=== PATIENT | female | born 1935 | race Caucasian/White ===

== ENCOUNTER 2019-03-21 14:27 | Outpatient (CLI) | payer MEDICARE, OTHER ==
--- NOTE | 2019-03-23 12:05 | XRAY Report ---
Reason: FELL ON TO R SHOULDER 1 YR AGO Procedure Date: 03/21/2019 Accession Number: [id number] / [id number] Procedure: XR - Shoulder 3 View RT CPT Code: FULL RESULT: EXAM: RIGHT SHOULDER RADIOGRAPHY EXAM DATE: 03/21/2019 04:08 PM. CLINICAL HISTORY: Fell on to right shoulder 1 year ago. COMPARISON: None. TECHNIQUE: 3 views. FINDINGS: Bones: Normal. No fracture or bone lesion. Joints: The glenohumeral and acromioclavicular joints are normally aligned. Mild glenohumeral and acromioclavicular joint degenerative disease. Soft tissues: The visualized hemithorax is unremarkable. No soft tissue swelling. IMPRESSION: 1. No acute abnormality. 2. Mild AC joint and glenohumeral joint degenerative disease. RADIA
== END 2019-03-21 14:28 | disposition home or self-care (01) ==
LOC: DI 14:27
PROVIDERS: ATTEND Family Medicine
DX: M19.011 Primary osteoarthritis, right shoulder (principal)

== ENCOUNTER 2020-04-21 15:34 | Outpatient (CLI) | payer MEDICARE, OTHER ==
--- NOTE | 2020-04-21 17:11 | XRAY Report ---
PROCEDURE: Hip w/Pelvis 2-3V LT INDICATIONS: SUDDEN PAIN L HIP/FALL TECHNIQUE: AP pelvis with lateral view(s) of the bilateral hip(s). COMPARISON: None. FINDINGS: Bones: No fractures or dislocations. Pelvic ring appears intact. No suspicious bony lesions. Soft tissues: The visualized bowel gas pattern is normal. No suspicious soft tissue calcifications. IMPRESSION: Mild symmetric hip joint osteoarthritis, no trauma found. Reviewed by: Salas العراقي MD on 04/21/2020 5:10 PM PDT Approved by: Salas العراقي MD on 04/21/2020 5:10 PM PDT Station ID: [id number]
== END 2020-04-21 15:35 | disposition home or self-care (01) ==
LOC: DI 15:34
PROVIDERS: ATTEND Physician Assistant
DX: M16.12 Unilateral primary osteoarthritis, left hip (principal)

== ENCOUNTER 2020-04-22 14:00 | Outpatient (CLI) | payer MEDICARE, OTHER ==
--- NOTE | 2020-04-22 17:15 | CONSULTATION NOTE ---
Palliative Care Consultation - Referral Referring Provider: Dr. Bunny Lai Time of Visit: [id number] Referral setting: Home Referral Reason: Dementia/Advanced Care Planning - Information Sources Records reviewed: Previous records reviewed History/Review of Systems obtained from: Patient, Friend (Adina present) Exam limitations: Clinical condition (short term memory impairment noted) - History of Present Illness Brief History of Present Illness: This is a delightful 84-year-old female who was seen for initial palliative care consultation today due to dementia and advanced care planning. The patient's friends, Adina is present during today's evaluation. The patient was seen by her PCP on 02/20/2020 a referral to palliative care was made for advanced care planning. The patient herself recognizes that she is forgetful but equates it more to forgetfulness with words. She finds that there may be a word in the course of the conversation that is just quite out of reach. She has not driven since her PCP suggested that she not drive. She scored 14/30 on her SLUMS exam with her PCP on 02/20/2020. She has been relying on close friends and the community of her taoism for assistance with necessities such as grocery shopping and appointments. This is been quite a loss for the patient as she has always been independent individual and she finds tawnya in driving. The patient continues to manage her own finances but does report that they are tight. She is continually caring for her dog, Micaela. She reports to no difficulty with fixing her own meals, taking her medications were performing household tasks. The patient did sustain a fall last week where she was evaluated by her PCP and a fracture was ruled out. She reports that she tripped over the veronika. At baseline the patient does not typically use an assistive device but presently is now going to be using a cane for additional added support. She reports to some pain at the lower base of her spine she denies radiation of the pain, numbness or tingling of the extremities, loss of control of bowel or bladder. She is taking acetaminophen for her discomfort. The patient is seen in her living room. She is well groomed and in no apparent distress. 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 Her served in the . She was born in [place]. She had 5 children 2 are . She has 3 sons that are still living: Jad, resides in [place]; Tj, resides in [place]; and Bunny, resides in [place]. The patient had lived for a number of years in [place]. She is very active and involved in her taoism community. Her son, Bunny is in the [employer] and she was previously residing with him and his family until he was stationed in [place] and the patient opted to stay in [place]. She has a college degree in psychology. 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 She has a dog, Micaela who is a miniature snoozer. She was previously residing in [place] but due to financial constraints relocated to [place]. She is presently living in a rental apartment on her landlord's property. Family History - Family History Family History: Mother: , Father: , Sister: Cancer, Brother: , CVA/TIA Family History Comment/Other: Father due to drowning event. Medications/Allergies - Medications Home Medications: Ambulatory Orders Medication Instructions Recorded Confirmed Ascorbic Acid [Vitamin C] 1 tab PO DAILY 04/23/20 04/23/20 Cholecalciferol (Vitamin D3) 1 cap PO DAILY 04/23/20 04/23/20 [Vitamin D3] Cyanocobalamin (Vitamin B-12) 1 tab PO DAILY 04/23/20 04/23/20 [Vitamin B-12] Methyl Salicylate/Menthol 1 patch TP DAILY 04/23/20 04/23/20 [Salonpas Patch] Pyridoxine HCl (Vitamin B6) 100 mg PO DAILY 04/23/20 04/23/20 [Vitamin B6] - Allergies Allergies/Adverse Reactions: Allergies Allergy/AdvReac Type Severity Reaction Status Date / Time No Known Drug Allergies Allergy Verified 04/23/20 17:27 Review of Systems - Constitutional Constitutional: reports: Weight stable. denies: Fatigue - Eyes Eyes: reports: Corrective lenses. denies: Vision loss - Ears, Nose & Throat Ears, Nose & Throat: denies: Hearing aids - Cardiovascular Cardiovascular: denies: Chest pain, Edema - Respiratory Respiratory: denies: Cough - Gastrointestinal Gastrointestinal: reports: Good appetite. 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 denies: Dysuria - Musculoskeletal Musculoskeletal: reports: Back pain (due to recent fall s/p evaluation by PCP office on 04/21/2020). denies: Joint swelling - Integumentary Integumentary: denies: Pruritis - Neurological Neurological: reports: Memory problems (forgets words) - Psychiatric Psychiatric: denies: Depression - Endocrine Endocrine: denies: Diabetes type 2 - Hematologic/Lymphatic Hematologic/Lymphatic: denies: Anemia - All Other Systems All Other Systems: reports: Reviewed and negative Physical Exam - Vital Signs Temperature: 36.4 C Pulse Rate: 53 O2 Saturation: 98 (on RA at rest) Blood Pressure: 150/87 (left wrist cuff) - Physical Exam General Appearance: positive: No acute distress, Alert, Other (well groomed) Eyes Bilateral: positive: Other (+corrective lenses) ENT: positive: No signs of dehydration Neck: positive: Trachea midline Cardiovascular: positive: No murmur, Bradycardia Respiratory: positive: Chest non-tender, No respiratory distress, Breath sounds nml. negative: Rales Abdomen: positive: Non-tender, Soft, Nml bowel sounds Skin: positive: No symptoms Extremities: positive: No pedal edema, Other (spine nontender to palpation; reported discomfort occuring at appx L5 with no visible ecchymosis) Neurologic/Psychiatric: positive: Oriented x3, Mood/affect nml, Other (Very pleasant and engaged; memory recall 0/3; in drawing a clock stating 11:10 she quickly marianela the clock face and numbers but struggled with placement of the hands.) Palliative Care - POLST Patient has POLST: No Pain: Comment (pain has shifted from left hip to lower back after fall last week with no evidence of fracture on imaging.) Nausea: None Anorexia: None Dyspnea: None Depression: None Anxiety: None Feelings of wellbeing/Perceived Quality of Life: Good (outside of not being able to drive) Sleep: Sleeps well Constipation: No Performance Status: Patient is ambulatory without an assistive device. Prepares her own meals and cares for her dog, Micaela. As she is not driving at the present time she is being assisted to the grocery store for necessary supplies. Continent of bowel and bladder. - Palliative Care Discussion: The patient perceives that she is forgetful in regarding words. She does not see a big global deficit in her ability to care for herself. She has been compliant with her PCPs recommendation to no longer drive and has received support from her taoism community as well as her friends. She is quite established in the community. Her friend, Adina who is present during the evaluation today reports that the patient often requires frequent repetition of instruction before it is in her remote memory. The patient states that her ability to recall is influenced by the fact that she was unable to hear as a child when she first began learning and therefore had to adapt. Her hearing improved after she had a tonsillectomy. The patient is open to looking into resources within the area to maintain her independence for as long as possible. Her friends are open to providing supports within the community. Ultimately, the patient's plan is for once her son, Bunny retires from the in approximately 2 years she plans to relocate to [place] to live with him and his family. She previously was residing with Bunny and his family but did not wish to make the move to the [facility] as she does not like it there. She has overall been a healthy individual and is not taking any prescription medication. She does equate that she has avoidances to certain medications due to her history of a nephrectomy after she sent [place] an injury from a horse. Impression and Recommendations - Palliative Care Impression: This is a seferino and delightful 84-year-old female with evidence of dementia, likely mild to moderate in nature living independently. Likely some underlying vascular component to her dementia due to her prior history of TIAs and CVA. The patient wishes to maintain her independence for as long as possible as well as safely. Patient needs assistance with advanced care planning. Palliative care to continue to build rapport, explore goals of care and end of life planning, supportive listening and anticipatory guidance. Recommendations/Counseling Done: 1.Dementia, likely vascular component due to the patient's history of CVA and TIA. Presently able to perform activities of daily living with support from her local friends and community. The patient requires assistance for advanced care planning in regards to the future. Her present goal is to move back in with her son, Bunny when he retires from the in approximately 2 years. And exploration today aware that she needs multiple plans to avoid a potential crisis. She has been compliant with not driving and upon review today expressed that with her cognitive issues she may have impaired reflexes that may result in an injury to herself and others and concedes understanding and agreement to refrain from driving. From PCP is documentation appears a referral to neurology was made for neuropsychological evaluation however, the patient is unaware of a referral or pending appointment as it is her friend. Call placed to PCPs office to review if this is pending and planned.Patient may benefit from disease modifying agent such as Aricept to maintain her function and if she is open to medication. We will continue to build rapport and explore the patient's understanding of dementia and disease progression on subsequent visits. 2. Elevated blood pressure. No cardiac awareness. On no antihypertensive medication. Goal blood pressure less than 150/80 E given patient's advanced age, living alone, high risk for falls. Wish to avoid any adverse effects with potential antihypertensive medication that may lead to orthostasis resulting in a fall. Continue to monitor. 3. Low back pain, appx L5 s/p fall. Fall precautions. Imaging per patient negative for fracture. Encourage use of ambulation with cane. May use tylenol OTC for pain as recommended by PCP. Suggested salonpas patch to be applied to affected area of back in AM and removed in PM for additional pain relief. F/u with PCP if no improvement or new/worsening symptoms. 4. Advanced care planning. Patient presently denies having a living will or designated healthcare power of workers compensation attorney. Copies of healthcare power of workers compensation attorney paperwork provided to the patient. The patient is quite able to express her desire to appointment for a healthcare agent as well as contributing to her desires for medical management. Will benefit from palliative care social work to tapped into community resources and given the patient's reports of financial limitations rotations if [place] The patient is amenable to being evaluated by palliative care social work. Wish to further review goals of care and teasing out multiple plans regarding living situation to avoid vulnerability for the patient in the future to avoid a crisis. Message left for patient's son, Bunny at [phone] to review above stating findings and assist with teasing out goals of care with permission of the patient. Awaiting return call. CC: Palliative Care Social Work Time Spent: f/u 3-4 weeks or prn. Total time spent 115 minutes with greater than 50% of this spent in counseling and coordination of care with patient and friend; review of palliative philosophy; examination of patient; introduction of advanced care planning and health care power of workers compensation attorney paperwork; review of symptom management and anticipatory guidance. Disclaimer: The chart note was formulated using voice recognition technology and unfortunately sound alike errors may occur.
== END 2020-04-22 14:01 | disposition home or self-care (01) ==
LOC: PC 14:00
PROVIDERS: ATTEND Nurse Practitioner Family
DX: Z51.5 Encounter for palliative care (principal); F03.90 Unspecified dementia, unspecified severity, without behavioral disturbance, psychotic disturbance, mood disturbance, and anxiety; R03.0 Elevated blood-pressure reading, without diagnosis of hypertension; M54.5 Low back pain; Z91.81 History of falling; Z86.73 Personal history of transient ischemic attack (TIA), and cerebral infarction without residual deficits
CPT/HCPCS: 99345

== ENCOUNTER 2020-05-12 15:05 | Outpatient (CLI) | payer MEDICARE, OTHER ==
--- NOTE | 2020-05-12 18:56 | CONSULTATION NOTE ---
Palliative Care Follow Up - Referral Referring Provider: Dr. Bunny Lai Time of Visit: [id number] Referral setting: Home Referral Reason: Dementia - Information Sources Records reviewed: Previous records reviewed History/Review of Systems obtained from: Patient Exam limitations: Clinical condition (STM impairment noted) - History of Present Illness Update Brief HPI Update: This is a delightful 84-year-old female who was seen in follow-up today within her home due to dementia and advanced care planning. The patient's friend, Adina was unable to be present for today's visit. The patient previously had sustained a fall that resulted in evaluation at her PCPs office with an x-ray obtained ruling out a fracture. Today, the patient is ambulatory without any evidence of distress with in her home environment and outside calling to her dog. The patient has been followed by her PCP noted for moderate dementia with a neurology consult pending. However, the patient is herself unaware of the diagnosis of dementia for herself as well as a neurology evaluation. Her PCP had highly recommend that she not drive which she had been adhering to until recently. She scored a 14 out of 30 on her UMS exam with her PCP on 02/20/2020. She continues to have support locally from her mormonism community as well as her friends. However, most of her friends reside in [place] and due to financial reasons she had relocated to [place]. The patient in regards to her health findings for getting the most bothersome to her. She has difficulty finding words. She also notes that in the course of a conversation she will forget the context of the conversation as it progresses. She also relays that she finds herself isolated in her apartment with her dog during the day. She does occupy her time with reading and watching television. She has forgotten to turn off the stove in the past. Therefore, she no longer uses the stove but only uses 2 of the burners on top of the stove. This TREASURY ASSISTANT attempted to contact the patient's PCP as well as her son, Bunny after her last home visit on 04/24/2020 without connection. Verified today with the patient regarding her son, Bunny's telephone number and will attempt to recontact. The patient is seen today in her apartment. She is well groomed and her apartment is tidy and well kept. Past Medical History: Patient has a past medical history of hysterectomy, colonoscopy, dementia, osteoarthritis, 5 sections, CVA, TIA, tonsillectomy, right knee replacement, nephrectomy. Social History - Living Situation Living arrangement: At home Living Situation: Alone Support System: She is and her served in the . She was born in [facility]. She has 5 children, 2 of whom are . She has 3 sons that are living. She had been residing with her son, Bunny, who was in the [employer] prior to his relocation to [place] and she opted to stay in [place]. Lisa contact number is [phone], and this was verified with the patient to day with her cell phone. She has degree in psychology. 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 The patient also has a dog, Micaela. The patient resides in a apartment in a [id number] freestanding building next to her landlord's in [place]. She moved into this set up approximately 1 to 2 years ago due to financial constraints. Medications/Allergies - Medications Home Medications: Ambulatory Orders Medication Instructions Recorded Confirmed Ascorbic Acid [Vitamin C] 1 tab PO DAILY 04/23/20 04/23/20 Cholecalciferol (Vitamin D3) 1 cap PO DAILY 04/23/20 04/23/20 [Vitamin D3] Cyanocobalamin (Vitamin B-12) 1 tab PO DAILY 04/23/20 04/23/20 [Vitamin B-12] Methyl Salicylate/Menthol 1 patch TP DAILY 04/23/20 04/23/20 [Salonpas Patch] Pyridoxine HCl (Vitamin B6) 100 mg PO DAILY 04/23/20 04/23/20 [Vitamin B6] - Allergies Allergies/Adverse Reactions: Allergies Allergy/AdvReac Type Severity Reaction Status Date / Time No Known Drug Allergies Allergy Verified 04/23/20 17:27 Review of Systems - Constitutional Constitutional: reports: Weight stable. denies: Fatigue - Eyes Eyes: reports: Corrective lenses. denies: Vision loss - Ears, Nose & Throat Ears, Nose & Throat: denies: Hearing loss - Cardiovascular Cardiovascular: denies: Chest pain, Edema - Respiratory Respiratory: denies: Cough - Gastrointestinal Gastrointestinal: reports: Good appetite ("sometimes too good"). 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 denies: Dysuria - Musculoskeletal Musculoskeletal: denies: Back pain, Joint swelling - Neurological Neurological: reports: Memory problems (forgets words) - Psychiatric Psychiatric: denies: Depression - Endocrine Endocrine: denies: Hypothyroidism - Hematologic/Lymphatic Hematologic/Lymph: Other (No recurrent infections) - All Other Systems All Other Systems: reports: Reviewed and negative Physical Exam - Vital Signs Temperature: 36.9 C Pulse Rate: 53 O2 Saturation: 98 (on RA) Blood Pressure: 152/81 (left wrist cuff) - Physical Exam General Appearance: positive: No acute distress, Alert, Other (well groomed) Eyes Bilateral: positive: Other (+corrective lenses) ENT: positive: No signs of dehydration Neck: positive: Trachea midline Cardiovascular: positive: No murmur, Bradycardia Respiratory: positive: No respiratory distress, Breath sounds nml. negative: Wheezes Abdomen: positive: Non-tender, Soft, Nml bowel sounds Skin: positive: No symptoms Extremities: positive: No pedal edema Neurologic/Psychiatric: positive: Oriented x3, Mood/affect nml, Other (Very pleasant and engaged; SLUMS test preformed with score 13/30; 0/5 memory recall) Palliative Care Pain: Pain improved (lower back pain due to fall early April 2020) Feelings of wellbeing/Perceived Quality of Life: Good (Enjoys laughter and spending time with others) Sleep: Sleeps well (outside of nocturia) Constipation: No Performance Status: Patient is ambulatory without an assistive device and steady. Prepares her own meals without an oven and cares for her dog, Micaela. She is engaged in her mormonism community. Incontinent of bowel and bladder. - Palliative Care Discussion: The patient perceives her greatest health concern with her inability to recall words. She was unable independently to define the underlying cause of this and was not surprised by this TREASURY ASSISTANT using the diagnosis of Dementia as the contributory factor to her recall. The patient acknowledges that she has an older sister who is also beginning to have memory impairment however, this is early. The patient was engaged and wish to understand further Haldol this could have developed. She was questioning if childhood trauma could have be a factor now with her memory impairment. She was reflective upon her childhood and upbringing reporting that she had been told that she was "nothing." This is something that she has been able to forgive but not forget. In the time since moving into her apartment in [place] and her isolation it is something that prays upon her mind in the mechanism inspector hours. She is someone who has always been active and engaged. 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 Cough is something that she quite misses. She had thought about moving into senior housing or assisted living but fear as this is not feasible with her financial restraints. One friend, had discussed activities at the senior center and this is something that she wishes to further look into given that she is a very social person who enjoys laughter and engaging in conversation. Due to the coronavirus and her living alone she has found that she is quite isolated. She wishes to engage further in her interactions with the community. The patient has clearly thought about her options in regards to interactions and living arrangements. She reports that she [place] [address] [place] and does not wish to do so again with one of her sons who resides in [place]. She reports that her son in [place] all is downsizing and therefore that would not be feasible. The only resolution she finds is to reside with her son Bunny however, she did not wish to relocate to the [facility]. Ultimately, the plan is for the patient and her older sister to reside in a [id number] suite on the property of the patient's son, Bunny after he retired from the in 2 years. It is unclear if the patient may have a crisis prior to this point has further cognitive decline and will need additional support. Impression and Recommendations - Palliative Care Impression: This is a seferino and delightful 84-year-old female with evidence of dementia, likely moderate in nature who was living independently. There is most likely an underlying vascular component to her dementia due to her prior history of TIAs and CVA. The patient wishes to maintain her independence for as long as possible as well as safely. Palliative care to continue to build rapport and, care coordination and provide anticipatory guidance. Recommendations/Counseling Done: 1.Dementia, will likely vascular or mixed in nature given the patient's history of CVA and TIA. Presently, the patient is able to perform activities of daily living with support from her local friends and community. She is well kept environment is tidy appears that she is caring for her self quite adequately. Views reviewed today with the patient regarding progression of dementia, signs and symptoms of dementia as well as pathophysiology. Begun exploring future moving forward with the patient as noted below with diagnosis advance care planning. Strongly encouraged to refrain from driving. The patient is unaware of a pending referral to neurology that was made by her PCP. SL UMS performed today with a score of 13 out of 30, indicative of underlying dementia. Given the patient is residing alone, evidence of bradycardia and has cognitive impairment she would not be appropriate to initiate a disease modifying agent at this time due to lack of monitoring of administration and side effects.. As the patient wishes to maintain her independence and function for as long as possible, Would readdress the initiation of a disease modifying agent If there was a consistent caregiver or family checking in on her for potential side effects and assisting with medication administration. We will continue to build upon the patient's understanding of dementia and disease progression. Continue to provide support. 2. Advanced care planning. On previous evaluation provided blank copies of healthcare power of consumer attorney paperwork for review and appointment of a healthcare agent. The patient continues to report financial limitations which prompted her to relocate from [place] to [place]. Discussed options such as Meals on Wheels that is available by donation and strongly encouraged the patient to contact [employer] to tap in 2 potential services with low income as well as looking into senior housing or assisted living facilities that would allow a pet. The patient is quite clear that she wishes to be in a apartment that would allow her to continue to have her dog, Micaela. Supportive listening provided. Will reach out to the patient's son, Bunny, again to touch base regarding recommendations moving forward and follow-up based on discussion. Time Spent: Total time spent 90 minutes with greater than 50% of this spent in counseling and coordination of care with patient; review of dementia and pathophysiology; discussion of local recourses such as [employer]; review of symptom management and anticipatory guidance. Disclaimer: The chart note was formulated using voice recognition technology and unfortunately sound alike errors may occur.
== END 2020-05-12 15:06 | disposition home or self-care (01) ==
LOC: PC 15:05
PROVIDERS: ATTEND Nurse Practitioner Family
DX: Z51.5 Encounter for palliative care (principal); F03.90 Unspecified dementia, unspecified severity, without behavioral disturbance, psychotic disturbance, mood disturbance, and anxiety; Z86.73 Personal history of transient ischemic attack (TIA), and cerebral infarction without residual deficits
CPT/HCPCS: 99350

== ENCOUNTER 2021-04-12 15:37 | Emergency (ER) | payer MEDICARE, OTHER ==
[2021-04-12 16:05] VITALS: BP 180/84
--- NOTE | 2021-04-12 16:05 | ED Physician Documentation ---
History of Present Illness - Stated complaint Stated Complaint: COVID SYMPT - History obtained from History obtained from: Patient, Family - Additonal information Additional information: This is a seferino but demented 85-year-old woman who presents accompanied by her son requesting coronavirus testing. Since yesterday she has had joint aches chills and fatigue. She was immunized against Covid with [employer] vaccine. She is in a penitentiary which reportedly has a current ongoing outbreak. Much of the history is from the son given her dementia. She mostly is complaining of joint aches. 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), Hysterectomy - Present Medications Home Medications: Ambulatory Orders Medication Instructions Recorded Confirmed Ascorbic Acid [Vitamin C] 1 tab PO DAILY 04/23/20 04/23/20 Cholecalciferol (Vitamin D3) 1 cap PO DAILY 04/23/20 04/23/20 [Vitamin D3] Cyanocobalamin (Vitamin B-12) 1 tab PO DAILY 04/23/20 04/23/20 [Vitamin B-12] Methyl Salicylate/Menthol 1 patch TP DAILY 04/23/20 04/23/20 [Salonpas Patch] Pyridoxine HCl (Vitamin B6) 100 mg PO DAILY 04/23/20 04/23/20 [Vitamin B6] - Allergies Allergies/Adverse Reactions: Allergies Allergy/AdvReac Type Severity Reaction Status Date / Time No Known Drug Allergies Allergy Verified 04/23/20 17:27 - POLST Patient has POLST: No PD ED PE NORMAL - Vitals Vital signs reviewed: Yes - General General: No acute distress, Other (Is alert and oriented to person and place but not time or events) - Neck Neck: Supple, no meningeal sign, No bony TTP - Cardiac Cardiac: RRR, No murmur - Respiratory Respiratory: No respiratory distress, Clear bilaterally - Abdomen Abdomen: Non tender - Back Back: No CVA TTP, No spinal TTP - Derm Derm: Normal color, Warm and dry PD MEDICAL DECISION MAKING - ED course ED course: 85-year-old woman presents requesting coronavirus testing and this is ordered. Exam is otherwise unremarkable. Departure - Departure Disposition: 01 Home, Self Care Clinical Impression: Viral syndrome Condition: Good Record reviewed to determine appropriate education?: Yes Instructions: ED Viral Syndrome Comments: You have a Covid test pending. You need to self quarantine until the result is done and negative. Do not leave your house. Do not get near anybody. The results should be done in 48 to 72 hours. We will call with a positive result, the fastest way to get a negative result for confirmation though is to go to the hospital website at [email or web address], click on the my [facility] tab and sign up for the patient portal. If any friends or family get sick and would like to have a Covid test done, but do not have signs or symptoms that would necessitate being hospitalized, we encourage testing through our coronavirus swabbing station, call [phone] to schedule an appointment.
== END 2021-04-12 16:07 | disposition home or self-care (01) ==
LOC: ED 15:37
DX: B34.9 Viral infection, unspecified (principal); Z20.822 Contact with and (suspected) exposure to COVID-19
CPT/HCPCS: 99283; U0004